=== PATIENT | female | born 1955 | race Caucasian/White ===

== ENCOUNTER 2018-05-04 18:20 | Emergency (ER) | payer BC ==
[~2018-05-04] VITALS: Ht 160 cm; Wt 94.3 kg
[~2018-05-04 18:20] MED LIST: ACIDOPHILUS 17175 MG PO; CEFTIN500 MG PO; CIPROFLOXACIN500 M1 PO; HYDROCODON-ACE1 EAC7 PO; PRILOSEC40 MG PO; VENTOLIN HFA INH8 GM INH; VITAMIN D32000 UNIT PO; ZOFRAN ODT4 MG PO; progesterone
[2018-05-04] MEDS ORDERED: VITAMIN D3400 UNIT PO (18:30)
[2018-05-04] MEDS ORDERED: FLEXERIL PO (18:30)
[2018-05-04] MEDS ORDERED: REPATHA SY140 MG/1 M SUBQ (18:31)
[2018-05-04] MEDS ORDERED: TRULICITY0.75 MG/0. SUBQ (18:31)
[2018-05-04] MEDS ORDERED: IBUPROFEN 800800 M1 PO (19:34)
[2018-05-04 19:41] VITALS: BP 115/90
== END 2018-05-04 19:42 | disposition home or self-care (01) ==
LOC: M.ERS 18:20
DX: S46.812A Strain of other muscles, fascia and tendons at shoulder and upper arm level, left arm, initial encounter (principal); K21.9 Gastro-esophageal reflux disease without esophagitis; M79.7 Fibromyalgia; Z90.49 Acquired absence of other specified parts of digestive tract; Z90.711 Acquired absence of uterus with remaining cervical stump; Z88.5 Allergy status to narcotic agent; Z88.0 Allergy status to penicillin; Z88.2 Allergy status to sulfonamides; X58.XXXA Exposure to other specified factors, initial encounter; Y93.89 Activity, other specified; Y92.89 Other specified places as the place of occurrence of the external cause; Y99.8 Other external cause status